=== PATIENT | female | born 1980 | race Caucasian/White ===

== ENCOUNTER 2019-08-19 01:17 | Inpatient (IN) | payer OTHER ==
[2019-08-19 02:43] VITALS: BMI 32.8
[2019-08-19] MEDS ORDERED: Morphine 2 MG/ML SYRINGE SLOW IVP PRN (02:45)
[2019-08-19] MEDS ORDERED: Ondansetron PF 4 MG/2 ML Vial SLOW IVP PRN (02:47)
[2019-08-19] MEDS: Sodium Chloride 0.9% 1,000 ML IV SCH ×2 (03:33→16:00)
[2019-08-19] MEDS ORDERED: metroNIDAZOLE 500 MG in Premix Bag 1 BAG IVPB SCH (04:00)
[2019-08-19 05:26] LABS: #Basophils 0.1 thou/uL (0.0-0.2); #Eosinphils 0.2 thou/uL (0.0-0.7); #Lymphocytes 1.8 thou/uL (1.20-3.40); #Monocytes 0.8 thou/uL (0.11-0.59); #Neutrophils 10.4 thou/uL (1.40-6.50); %Basophils 0.5 % (0.0-1.0); %Eosinophils 1.7 % (0.0-10.0); %Lymphocytes 13.5 % (21.0-51.0); %Monocytes 5.8 % (0.0-10.0); %Neutrophils 78.5 % (42.0-75.0); Hemoglobin 12.8 g/dL (12.0-16.0); Mean Corpuscular HGB CONC 32.9 g/dL (32.0-36.0); Mean Corpuscular Hemoglobin 29.4 pg (27.0-31.0); Mean Corpuscular Volume 89.2 fL (78.0-98.0); Platelet Count 347 thou/uL (130-400); RBC Distribution Width 12.2 % (11.5-14.5); Red Blood Cell (RBC) Count 4.35 mill/uL (4.20-5.40); White Blood Cell (WBC) Count 13.3 thou/uL (4.8-10.8)
[2019-08-19] MEDS ORDERED: Polyethylene Glycol 3350 17 GM Packet PO SCH (09:00)
[2019-08-19] MEDS: Famotidine/PF 20 mg/2ml Vial SLOW IVP SCH ×2 (09:15→21:10)
[2019-08-19] MEDS: Polyethylene Glycol 3350 17 GM Packet PO SCH ×2 (11:45→21:09)
[2019-08-19] MEDS: Ketorolac Tromethamine 30 MG/ML VIAL IVP SCH ×3 (11:45→23:29)
--- NOTE | 2019-08-19 11:52 | HP ---
CHIEF COMPLAINT: Left lower quadrant abdominal pain. HISTORY OF PRESENT ILLNESS: The patient is a 39-year-old moderately obese white female. She had presented to the [facility] on August 15 with a complaint of left lower quadrant abdominal pain. She was evaluated at that time and found to have diverticulitis. She was given outpatient antibiotics and dietary recommendations. She returned home in [place], but the pain recurred and became worse last night and she presented to the hospital in [place]. She again underwent laboratory and radiologic studies. Her white blood cell count was elevated at 13.7. CT scan was obtained and read by [facility] to be consistent with diverticulitis with possible microperforation. For this reason, I was contacted and she was admitted to my service. She denies any prior history of diverticulitis or knowledge of colon abnormality. She denies any history of significant constipation. PAST MEDICAL HISTORY: Essentially unremarkable. PAST SURGICAL HISTORY: Hysterectomy for endometriosis 13 years ago (at age 26), tonsillectomy. MEDICATIONS: None other than outpatient Levaquin and Flagyl from a recent ER visit. ALLERGIES: NO KNOWN DRUG ALLERGIES. PERSONAL AND SOCIAL HISTORY: She is . She has no children. She smokes one pack per day of cigarettes. Drinks alcohol occasionally. She works at the [employer] in [place]. She moved here about a year ago from [place] and does not have a current primary care physician. PHYSICAL EXAMINATION: VITAL SIGNS: Temperature is 98.2, pulse 84, blood pressure 94/67. GENERAL: She is a well-developed, well-nourished, moderately obese white female, resting in bed, in no acute distress. She is alert and oriented x3 and cooperative. HEAD, EYES, EARS, NOSE, AND THROAT: Unremarkable. NECK: Supple without mass or tenderness. LUNGS: Clear to auscultation throughout. CARDIAC: Regular rate and rhythm without murmur. ABDOMEN: Soft with normoactive bowel sounds. She has focal tenderness in the left lower quadrant with obvious guarding. EXTREMITIES: Unremarkable. LABORATORY DATA: Her chemistry panel from last night shows minimal electrolyte abnormalities. ASSESSMENT: The patient with obvious diverticulitis. I do not believe there is any perforation and this therefore appears to be a standard episode of diverticulitis. We will keep her on a liquid diet, IV antibiotics until this resolves to where she is stable for discharge. I anticipate this will be over the next 48 hours. If this is her 1st episode of diverticulitis and there is no obvious perforation, she certainly does not need surgical intervention at this time. Job ID: [id number]
[2019-08-19] MEDS: Piperacillin/Tazobactam 3.375 GM in Sodium Chloride 0.9% 100 ML IVPB SCH ×3 (11:54→23:30)
[2019-08-20] MEDS: Sodium Chloride 0.9% 1,000 ML IV SCH (03:55)
[2019-08-20] MEDS: Ketorolac Tromethamine 30 MG/ML VIAL IVP SCH (05:52)
[2019-08-20] MEDS: Piperacillin/Tazobactam 3.375 GM in Sodium Chloride 0.9% 100 ML IVPB SCH (05:53)
[2019-08-20 06:15] LABS: #Eosinphils 0.4 thou/uL (0.0-0.7); #Lymphocytes 2.6 thou/uL (1.20-3.40); #Monocytes 1.1 thou/uL (0.11-0.59); #Neutrophils 6.9 thou/uL (1.40-6.50); %Basophils 0.3 % (0.0-1.0); %Lymphocytes 23.5 % (21.0-51.0); %Monocytes 9.9 % (0.0-10.0); %Neutrophils 62.3 % (42.0-75.0); Hemoglobin 10.6 g/dL (12.0-16.0); Mean Corpuscular HGB CONC 32.1 g/dL (32.0-36.0); Mean Corpuscular Hemoglobin 28.9 pg (27.0-31.0); Mean Corpuscular Volume 90.2 fL (78.0-98.0); Mean Platelet Volume 7.4 fL (7.4-10.4); Platelet Count 311 thou/uL (130-400); RBC Distribution Width 12.5 % (11.5-14.5); Red Blood Cell (RBC) Count 3.68 mill/uL (4.20-5.40)
[2019-08-20 08:13] VITALS: BP 100/68; TEMP 98.1
[2019-08-20] MEDS: Polyethylene Glycol 3350 17 GM Packet PO SCH (08:20)
[2019-08-20] MEDS: Famotidine/PF 20 mg/2ml Vial SLOW IVP SCH (08:22)
== END 2019-08-20 10:46 | disposition home or self-care (01) | DRG 392 ==
LOC: SURG A 02:23
PROVIDERS: ADMIT Specialist; ATTEND Specialist
DX: K57.32 Diverticulitis of large intestine without perforation or abscess without bleeding (principal); Z90.710 Acquired absence of both cervix and uterus; E66.9 Obesity, unspecified; Z68.32 Body mass index [BMI] 32.0-32.9, adult
CPT/HCPCS: 36415; 85025; J1885; J2270; J2543; J3490; S0028